=== PATIENT | female | born 1950 | race Caucasian/White ===

== ENCOUNTER 2017-02-23 16:14 | Observation (INO) | payer OTHER ==
[~2017-02-23] VITALS: Ht 160 cm; Wt 115.1 kg
[~2017-02-23 16:14] MED LIST: ASMANEX HF100 MCG/AC; ASMANEX IN; ATENOLOL100 MG PO; DELTASONE20 MG PO; IBUPROFEN800 MG PO; LEVOTHYROXINE75 MCG PO; LOSARTAN POTASS50 MG PO; MORPHINE SULFAT15 M2 PO; MORPHINE SULFAT30 MG PO; OPANA ER (CRUSH10 MG PO; PAXIL10 MG PO; PREDNISONE20 MG PO; VENTOLIN HFA IN; XANAX0.25 MG PO
--- NOTE | 2017-02-23 18:49 | ED CLINICAL REPORT ---
Clinical Report - Physicians/Mid Levels [facility] [address] [place] [address] 02/23/2017 16:14 Patient: VITALIY WELLER Time Seen: 1630. Arrived- By ambulance. Historian- patient. HISTORY OF PRESENT ILLNESS Chief Complaint: ABDOMINAL PAIN. At its maximum, severity described as severe. When seen in the E.D., severity described as severe. Modifying factors- worsened by movement. Relieved by rest. It is described as sharp and it is described as located in the right upper quadrant and radiating (right flank). This started ast 4 days and is still present and worsening. It was abrupt in onset and has been intermittent but is not gone now. The patient has had nausea and vomiting. No loss of appetite or diarrhea. No additional abdominal pain. No recent travel. Similar symptoms previously: Several times. Recent medical care: Not recently seen/assessed. REVIEW OF SYSTEMS No black stools, bloody stools, fever, chest pain or difficulty breathing. No skin rash. All systems otherwise negative, except as recorded above. PAST HISTORY See nurses notes. Medications: MS Contin Oral (Tablet Extended Release 15 mg) 1 tablet, daily. Atenolol Oral 100 mg, daily. Ibuprofen Oral 800 mg, 3x a day. Levothyroxine Sodium Oral 75 mcg, daily. Losartan Potassium Oral 50 mg, daily. Morphine Sulfate Oral 40 mg, daily (30mg plus 10mg). Opana Oral (Tablet 10 mg) 1 tablet, twice daily. Ventolin HFA Inhalation. Allergies: Ceclor. Dilaudid. Fentanyl. Penicillin. Quinolones. SOCIAL HISTORY Never smoker. No alcohol use or drug use. No recent travel. Is a local resident. FAMILY HISTORY No family history of gall bladder problems. ADDITIONAL NOTES The nursing notes have been reviewed. PHYSICAL EXAM Vital Signs: 02/23/2017 16:18 BP: 170/78. HR: 64. RR: 16. O2 saturation: 94%. Temp: 98.9 F. Pain level now: 10/10. Oxygen saturation normal. Appearance: Alert. Oriented X3. Patient in mild distress. (non-toxic. pleasant. cooperative.). Eyes: Pupils equal, round and reactive to light. Eyes normal inspection. No scleral icterus. ENT: Ears normal. Nose normal. Pharynx normal. Neck: Normal inspection. Neck supple. CVS: Normal heart rate and rhythm. Heart sounds normal. Pulses normal. Respiratory: No respiratory distress. Breath sounds normal. Chest nontender. No rales, rhonchi or wheezes. Abdomen: Soft. Mild tenderness in the right upper quadrant. Bowel sounds normal. No organomegaly. No mass. (negative Gutierrez's. No tenderness at McBurney's.). Skin: Skin warm and dry. Normal skin color. No rash. Normal skin turgor. Extremities: Extremities exhibit normal ROM. No lower extremity edema. LABS, X-RAYS, AND EKG Abdominal Sonogram: (PROCEDURE: US ABDOMEN ULTRASOUND-LIMITED INDICATION: RUQ ABDOMINAL PAIN TECHNIQUE: Gamboa scale and color Doppler sonographic images were obtained of the right upper quadrant. COMPARISON: None. FINDINGS: The liver is at the upper limits of normal in size, mildly heterogeneous in echotexture, and mildly hyperechoic. No mass or biliary dilatation. The gallbladder is distended and filled with heterogeneous material and multiple punctate echogenic reflectors. The wall is between3-4 mm, but there is focal thickening up to 10 mm, and hyperemic. There is trace pericholecystic fluid. The common duct is about 9 mm. There was a positive Gutierrez's sign per the technologist. The pancreas abdominal aorta, or distal common duct were not well seen. The visible portion of the inferior vena cava, and portal vein appear normal with appropriate direction of flow in the portal vein. The right kidney is normal measuring 10.3 cm. No free fluid in the right upper quadrant. IMPRESSION: 1. Findings suggestive of acalculous, acute cholecystitis. 2. Enlarged common duct without visualization of the distal portion. Choledocholithiasis cannot be excluded. 3. Pancreas, distal common duct, and aorta not well seen.). The study was independently viewed by me and interpreted by the radiologist. The study was discussed with the radiologist (via pacs). Laboratory Tests: UA-Culture if indicated: (ILANA: 02/23/2017 17:20) ( MsgRcvd 02/23/2017 17:41) Final results Test Result Flag Units (Reference) URINE COLOR DARK YELLOW URINE APPEARANCE SL CLOUDY URINE GLUCOSE NEGATIVE (NEGATIVE) URINE BILIRUBIN ICTOTEST NEGATIVE (NEGATIVE) URINE KETONE 1+ (NEGATIVE) URINE SPECIFIC GRAVITY >= 1.030 (1.010-1.030) URINE PH 6.0 (5.0-8.0) URINE PROTEIN 2+ (NEGATIVE) URINE UROBILINOGEN 1.0 EU/dL (0.2-1.0) URINE NITRITE NEGATIVE (NEGATIVE) URINE BLOOD NEGATIVE (NEGATIVE) URINE LEUK ESTERASE NEGATIVE (NEGATIVE) URINE RBC 0-1 rbc/hpf (0-1) URINE WBC 3-5 wbc/hpf (0-1) URINE EPITHELIAL CELLS 10-15 EPI/hpf (0-5) URINE BACTERIA MODERATE (2+ TO 3+) (NONE SEEN) URINE COMMENT CULTURE INDICATED 1+ MUCUSURINE CULTURES ARE SET-UP BASED ON THE FOLLOWING CRITERIA:POSITIVE NITRITEPOSITIVE LEUKOCYTE ESTERASEGREATER THAN 10 WHITE BLOOD CELLSMODERATE (2+) OR GREATER BACTERIA CBC w Diff: (ILANA: 02/23/2017 16:35) ( [facility] [place] 02/23/[place] 16:52) Final results Test Result Flag Units (Reference) WHITE BLOOD COUNT 11.8 H K/uL (4.5-11.5) RED BLOOD COUNT 5.31 H M/uL (4.00-5.20) HEMOGLOBIN 14.8 gm/dL (12.0-16.0) HEMATOCRIT 44.0 % (36.0-46.0) MEAN CELL VOLUME 83 fL (80-100) MEAN CORPUSCULAR HGB 28 pg (26-34) MEAN CORPUSCULAR HGB CONC 34 g/dL (31-37) RED CELL DISTRIBUTION WIDTH 13.0 % (11.6-14.8) PLATELET COUNT 292 K/uL (150-400) NEUTROPHIL % 72.9 % (50-75) LYMPH % 18.1 L % (25-40) MONO % 8.6 % (3-14) EOSINOPHIL % 0 % (0-4) BASOPHIL % 0.4 % (0-2) PT with INR: (ILANA: 02/23/2017 16:35) ( [facility] [place] 02/23/2017 16:58) Final results Test Result Flag Units (Reference) INR 1.0 (0.8-1.2) Low Intensity Therapy: INR 1.5-2.0 PT range 18.5-23.1Mod.Intensity Therapy: INR 2.0-3.0 PT range 23.1-31.5High Intensity Therapy: INR 2.5-3.5 PT range 27.4-35.5High Intensity Therapy 2: INR 3.0-4.0 PT range 31.5-39.3 CMP: (ILANA: 02/23/2017 16:35) ( MsgRcvd 02/23/2017 16:58) Final results Test Result Flag Units (Reference) GLUCOSE 124 H mg/dL (70-110) BUN 20 H mg/dL (7-18) CREATININE 1.0 mg/dL (0.6-1.3) Estimated GFR 59.33 mL/min Estimated GFR- >60 mL/min Note: Persistent reduction over 3 months in eGFR<60 mL/min/1.73 m2 defines CKD. Patients with eGFR values>=60 mL/min/1.73 m2 may also have CKD if evidence ofpersistent proteinuria. Additional information may be foundat [email or web address].org. SODIUM 144 mmol/L (136-145) POTASSIUM 3.7 mmol/L (3.5-5.1) CHLORIDE 106 mmol/L (98-107) CARBON DIOXIDE 25 mmol/L (21-32) CALCIUM 8.3 L mg/dL (8.5-10.1) TOTAL PROTEIN 7.6 g/dL (6.4-8.2) ALBUMIN 3.5 g/dL (3.3-5.0) BILIRUBIN, TOTAL 0.7 mg/dL (0.0-1.0) ALKALINE PHOSPHATASE 63 U/L (46-116) AST (SGOT) 34 U/L (15-37) ALT (SGPT) 33 U/L (12-78) LIPASE 86 U/L (73-393) AMYLASE 40 U/L (25-115) . PROGRESS AND PROCEDURES Course of Care: The patient is a pleasant 66-year-old female presenting for evaluation of right upper quadrantabdominal pain. At this time differential diagnosis includes hepatitis, biliary colic, acute cholecystitis, urinary tract infection as well as pancreatitis. Pain medication as been ordered. Patient is agreeable to the treatment and plan. Patient's workup is unremarkable for the findings above. Patient with emphysematous cholecystitis. Contacted general surgery who recommended patient be admitted to the hospital under their acute cholecystitis protocol admission. Because of the patient's allergies to medications, had some difficulty with selecting appropriate antibiotic therapy however was able to treat the patient at this time with metronidazole and aztreonam. Patient apparently with anaphylaxis to penicillin and would be concerned with treating the patient with cephalosporins as well after having a long discussion with the patient in regards to the sports physiologist activity of cephalosporins and penicillins. Was able to speak to the general surgeon who works at the patient's. Would like medicine to consult on the patient in regards to her other Medical condition management. Was able to speak to the hospitalist will also consult on the patient's case. No further recommendations made. Patient's pain has improved while here in the emergency department. Patient continues to be nontoxic and is not septic. Discussed with patient worker. Emergency department as well as diagnosis and plan of care. All questions have been answered. Prior to patient's departure from the emergency department she was noted to be resting in bed andin much significant improvement pain. Patient continues to be nontoxic. Vital signs otherwise unremarkable. Critical care performed (40 minutes). Time is exclusive of separately billable procedures. Time includes: direct patient care, patient reassessment, coordination of patient care, interpretation of data (laboratory data), review of patient's medical records, medical consultation and documentation of patient care. Disposition: Admitted to Acute Care. CLINICAL IMPRESSION acute emphysematous cholecystitis. Acute right upper quadrant abdominal pain. (Electronically signed by Mason Santos Dr. 02/24/2017 17:24)
--- NOTE | 2017-02-23 18:49 | ED ORDER SUMMARY ---
..... Patient: VITALIY WELLER OrderSheet [facility] VisitID: [id number] [address] [place] [address] 66y, F Registration Date/Time: 02/23/2017 ORDER SHEET Weight: 114.3 kg (stated) Allergies: Ceclor, Penicillin, Quinolones, Dilaudid, Fentanyl GENERAL ORDERS: CBC w Diff Urgent (16:02/23/2017 KKnebel R.N. per protocol) (Ack 16:30 TBergley) (16:40 KKnebel R.N.) CMP Urgent (:02/23/2017 KKnebel R.N. per protocol) (Ack 16:30 TBergley) (16:40 KKnebel R.N.) UA-Culture if indicated Urgent (16:02/23/2017 KKnebel R.N. per protocol) (Ack 16:30 TBergley) (17:22 Otto) PT with INR Urgent (16:02/23/2017 KKnebel R.N. per protocol) (Ack 16:30 TBergley) (16:40 KKnebel R.N.) Amylase Urgent (16:02/23/2017 KKnebel R.N. per protocol) (Ack 16:30 TBergley) (16:40 KKnebel R.N.) Lipase Urgent (16:02/23/2017 KKnebel R.N. per protocol) (Ack 16:30 TBergley) (16:40 KKnebel R.N.) Pulse oximeter (16:02/23/2017 KKnebel R.N. per protocol) (Ack 16:30 TBergley) (16:40 KKnebel R.N.) EKG - ER Stat (:02/23/2017 KKnebel R.N. per protocol) (Ack 16:30 TBergley) (16:38 TBergley) Vitals - Orthostatic (16:02/23/2017 KKnebel R.N. per protocol) (Ack 16:30 TBergley) (17:34 TBergley) Vitals (16:27 02/23/2017 KKnebel R.N. per protocol) (Ack 16:30 TBergley) (16:40 KKnebel R.N.) NPO (16:27 02/23/2017 KKnebel R.N. per protocol) (Ack 16:30 TBergley) (16:38 TBergley) US Abdomen Limited (No) Urgent (16:58 02/23/2017 Julianna Mittal) (Ack 17:01 TBergley) (19:05 KKnebel R.N.) MEDICATION ORDERS: Aztreonam IVPB 2 gm (NOW) (18:56 02/23/2017 Julianna Mittal) (19:43 MICHAELnebel R.N.) IV FLUIDS: IV NS : initial bolus 1000 mL (1000 mL/hr), then 1000 mL/hr for X1 (NOW) (16:27 02/23/2017 Nae R.N. per protocol) (16:41 Nae R.N.) IV Saline Lock (16:27 02/23/2017 Nae R.N. per protocol) (16:40 Nae R.N.) Morphine IV 4 mg (back log for 1700) (17:32 02/23/2017 Julianna Mittal) (17:35 MICHAELnemelvina R.N.) Zofran IV 4 mg (back log for 1700) (17:33 02/23/2017 Julianna Mittal) (17:36 MICHAELnemelvina R.N.) Morphine IV 8 mg (HIGH ALERT MEDICATION, NOW) (18:53 02/23/2017 Julianna Mittal) (19:29 MICHAELnemelvina R.N.) okay per history Zofran IV 4 mg (NOW) (18:53 02/23/2017 Julianna Mittal) (19:20 Nae R.N.) Metronidazole IV 500 mg/100mL (NOW) (18:56 02/23/2017 Julianna Mittal) (19:44 MICHAELnemelvina R.N.) ORDER SHEET NOTES: [Electronically signed by Esmer Joseph R.N. (23:18 02/23/2017)] [Electronically signed by Mason Santos Dr. (17:24 02/24/2017)] [Electronically locked/signed by Esmer Joseph R.N. (23:18 02/23/2017)]
--- NOTE | 2017-02-23 18:49 | ED NURSING NOTES ---
Clinical Report - Nurses [facility] [address] [place] [address] 02/23/2017 16:14 Patient: VITALIY WELLER TRIAGE 16:18 02/23/17. BP: 170/78. HR: 64. RR: 16. O2 saturation: 94%. Temp: 98.9 F. Pain level now: 07/29. --16:28 Esmer Joseph R.N. late entry - 16:18 02/23/17. --16:56 Esmer Joseph R.N. Triage time 16:15 16:18 Feb 23 2017 Feb 23 2017. Acuity: LEVEL 3. Chief Complaint: ABDOMINAL PAIN, NAUSEA and VOMITING. 16:25 02/23/17. Alert. No acute distress. --16:28 Esmer Joseph R.N. Weight: 114.3 kg stated. Height/Length: 64 inches Per Patient. BMI: 43.3. --16:23 Esmer Joseph R.N. Medications Atenolol Oral 100 mg, daily. Ibuprofen Oral 800 mg, 3x a day. Levothyroxine Sodium Oral 75 mcg, daily. Losartan Potassium Oral 50 mg, daily. Morphine Sulfate Oral 40 mg, daily (30mg plus 10mg). Opana Oral (Tablet 10 mg) 1 tablet, twice daily. Ventolin HFA Inhalation. --16:19 Esmer Joseph R.N. MS Contin Oral (Tablet Extended Release 15 mg) 1 tablet, daily. --16:20 Esmer Joseph R.N. Allergies Ceclor. Penicillin. Quinolones. --16:21 Esmer Joseph R.N. Dilaudid. --16:21 Esmer Joseph R.N. Fentanyl. --16:22 Esmer Joseph R.N. History Arrived by EMS, and from home. This is a new problem. Symptoms still present (about 4 days ago). PAST MEDICAL HX: Gallstones. The patient has had a hysterectomy. SOCIAL HX: Never smoker. No alcohol use or drug use. No recent travel. No infectious disease exposure. SELF HARM ASSESSMENT: A self harm assessment was performed. The patient answered "no" to the question "Do you have thoughts of harming or killing yourself?". ABUSE ASSESSMENT: Abuse assessment: The patient was asked "Do you feel safe in your home?". --16:28 Esmer Joseph R.N. 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 BP: 146 / palp. HR: 60. CHIRAG COMA SCORE: Chirag Coma Scale: 15- eyes open spontaneously (4); best verbal response- oriented x 4 (5); best motor response- obeys commands (6). --16:56 Esmer Joseph R.N. PROBLEMS: Thyroid Disease. Chronic Back Pain. Arthritis. Anxiety Reaction. Hyperlipidemia. Hypertension. Pneumonia. COPD - Chronic Obstructive Pulmonary Disease. Asthma. Hypokalemia. Abnormal EKG. Dehydration. Degenerative Joint Disease. Degenerative Joint Disease. Back Pain. --16:22 Esmer Joseph R.N. Coronary Artery Disease [RuleOut]. --16:22 Esmer Joseph R.N. ADDITIONAL SURGERIES: Appendectomy. Hernia Repair. Hysterectomy. --16:22 Esmer Joseph R.N. Interventions ID and allergy band on patient. To room. --16:28 Esmer Joseph R.N. PHYSICAL ASSESSMENT GENERAL / NEURO / PSYCH: Alert. Oriented X 4. Appears in pain. RESPIRATORY: Respirations not labored. CVS: Capillary refill less than 2 seconds. GI / : Abdomen soft. Abdominal tenderness in the upper abdomen. SKIN: Skin is warm and dry. --16:29 Esmer Joseph R.N. NURSING PROGRESS NOTES Patient identifiers checked. Side rails up x 1. Bed placed in lowest position. Brakes of bed on. --16:29 Esmer Joseph R.N. 16:35 02/23/2017 Site #1 started via IV in the left antecubital space with an 20g angiocath, with aseptic technique and good blood return; one attempt. Blood drawn: rainbow set. Labeled in the presence of the patient and sent to the lab. Saline lock flushed with 10 mL saline. --16:40 Esmer Joseph R.N. 16:41 02/23/2017 Started IV Fluids IV NS (Saline); at 1000 mL/hr over 1 hour(s) via site #1 via IV pump. Allergies verified and confirmed 5 rights. IV patency established. IV site checked: no pain, redness, or swelling. IV flushed thoroughly pre- and post-medication administration. --16:41 Esmer Joseph R.N. EKG time: (1646). EKG was ordered, performed by a tech and shown to the ED physician. --16:47 Cait Martínez 17:26 02/23/17. BP: 177/73 (regular adult cuff) taken on the right arm, while lying. HR: 64. --17:28 Cait Martínez 17:30 02/23/17. BP: 147/84 (regular adult cuff) taken on the right arm, while sitting. HR: 74. --17:30 Cait Martínez 17:31 02/23/17. BP: 144/85 (regular adult cuff) taken on the right arm, while standing. HR: 73 (regular). --17:31 Cait Martínez 17:20 02/23/2017 Morphine IVP 4 mg given over 2 minute(s) via site #1. Allergies verified, confirmed 5 rights and sedative warning given to the patient. IV patency established. IV site checked: no pain, redness, or swelling. IV flushed thoroughly pre- and post-medication administration. IVP given by RN. --17:35 Esmer Joseph R.N. 17:23 02/23/2017 Zofran (Ondansetron HCl) IVP 4 mg given over 2 minute(s) via site #1. Allergies verified and confirmed 5 rights. IV patency established. IV site checked: no pain, redness, or swelling. IV flushed thoroughly pre- and post-medication administration. IVP given by RN. --17:36 Esmer Joseph R.N. Reassessment after medication administered. She is calm and resting quietly. Overall patient status- she states feels better. --17:38 Esmer Joseph R.N. 17:36 02/23/17. BP: 157/80. HR: 71. RR: 16. O2 saturation: 90%. Pain level now: 04/28. --17:38 Esmer Joseph R.N. ( US at the bedside for exam.). --18:01 Justina Childers R.N. ( US completed pt resting.). --18:28 Esmer Joseph R.N. 19:20 02/23/2017 Zofran (Ondansetron HCl) IVP 4 mg given over 2 minute(s) via site #1. Allergies verified and confirmed 5 rights. IV patency established. IV site checked: no pain, redness, or swelling. IV flushed thoroughly pre- and post-medication administration. IVP given by RN. --19:20 Esmer Joseph R.N. 19:29 02/23/2017 Morphine IVP 8 mg given over 3 minute(s) via site #1. Allergies verified, confirmed 5 rights and sedative warning given to the patient. IV patency established. IV site checked: no pain, redness, or swelling. IV flushed thoroughly pre- and post-medication administration. IVP given by RN. --19:29 Esmer Joseph R.N. 19:43 02/23/2017 Started 2 gm of Aztreonam IVPB in bag #1 20 mL; at 120 mL/hr over 5 minute(s) via site #1; Allergies verified and confirmed 5 rights. IV patency established. IV site checked: no pain, redness, or swelling. IV flushed thoroughly pre- and post-medication administration. --19:43 Esmer Joseph R.N. 19:44 02/23/2017 Started 500 mg of Metronidazole IVPB in bag #1 100 mL; at 100 mL/hr over 1 hour(s) via site #1 via IV pump. Allergies verified and confirmed 5 rights. IV patency established. IV site checked: no pain, redness, or swelling. IV flushed thoroughly pre- and post-medication administration. --19:44 Knebel, Esmer, R.N. DISPOSITION / DISCHARGE Patient's personal items include: shirt, pants, undergarments, shoes, jewelry, purse and cell phone, silver colored watch, silver colored bracelet, 4 hoop earrings and 1 pair clear stone/silver earrings, silver cross necklace.; items were placed in belongings bag, given to the patient and transported with the patient. Collection of belongings was witnessed by nurse. --19:55 Esmer Joseph R.N. Transported via stretcher by transport team with IV. --20:16 Lyndon Ferguson R.N. Locked/Released at 02/23/2017 23:18 by Esmer Joseph R.N.
--- NOTE | 2017-02-23 18:49 | ED ORDER SUMMARY ---
..... Patient: VITALIY WELLER OrderSheet [facility] VisitID: [id number] [address] [place] [address] 66y, F Registration Date/Time: 02/23/2017 ORDER SHEET Weight: 114.3 kg (stated) Allergies: Ceclor, Penicillin, Quinolones, Dilaudid, Fentanyl GENERAL ORDERS: CBC w Diff Urgent (16:02/23/2017 KKnebel R.N. per protocol) (Ack 16:30 TBergley) (16:40 KKnebel R.N.) CMP Urgent (:02/23/2017 KKnebel R.N. per protocol) (Ack 16:30 TBergley) (16:40 KKnebel R.N.) UA-Culture if indicated Urgent (16:02/23/2017 KKnebel R.N. per protocol) (Ack 16:30 TBergley) (17:22 Otto) PT with INR Urgent (16:02/23/2017 KKnebel R.N. per protocol) (Ack 16:30 TBergley) (16:40 KKnebel R.N.) Amylase Urgent (16:02/23/2017 KKnebel R.N. per protocol) (Ack 16:30 TBergley) (16:40 KKnebel R.N.) Lipase Urgent (16:02/23/2017 KKnebel R.N. per protocol) (Ack 16:30 TBergley) (16:40 KKnebel R.N.) Pulse oximeter (16:02/23/2017 KKnebel R.N. per protocol) (Ack 16:30 TBergley) (16:40 KKnebel R.N.) EKG - ER Stat (:02/23/2017 KKnebel R.N. per protocol) (Ack 16:30 TBergley) (16:38 TBergley) Vitals - Orthostatic (16:02/23/2017 KKnebel R.N. per protocol) (Ack 16:30 TBergley) (17:34 TBergley) Vitals (16:27 02/23/2017 KKnebel R.N. per protocol) (Ack 16:30 TBergley) (16:40 KKnebel R.N.) NPO (16:27 02/23/2017 KKnebel R.N. per protocol) (Ack 16:30 TBergley) (16:38 TBergley) US Abdomen Limited (No) Urgent (16:58 02/23/2017 Julianna Mittal) (Ack 17:01 TBergley) (19:05 KKnebel R.N.) MEDICATION ORDERS: Aztreonam IVPB 2 gm (NOW) (18:56 02/23/2017 Julianna Mittal) (19:43 MICHAELnebel R.N.) IV FLUIDS: IV NS : initial bolus 1000 mL (1000 mL/hr), then 1000 mL/hr for X1 (NOW) (16:27 02/23/2017 Nae R.N. per protocol) (16:41 Nae R.N.) IV Saline Lock (16:27 02/23/2017 Nae R.N. per protocol) (16:40 Nae R.N.) Morphine IV 4 mg (back log for 1700) (17:32 02/23/2017 Julianna Mittal) (17:35 MICHAELnemelvina R.N.) Zofran IV 4 mg (back log for 1700) (17:33 02/23/2017 Julianna Mittal) (17:36 MICHAELnemelvina R.N.) Morphine IV 8 mg (HIGH ALERT MEDICATION, NOW) (18:53 02/23/2017 Julianna Mittal) (19:29 MICHAELnemelvina R.N.) okay per history Zofran IV 4 mg (NOW) (18:53 02/23/2017 Julianna Mittal) (19:20 Nae R.N.) Metronidazole IV 500 mg/100mL (NOW) (18:56 02/23/2017 Julianna Mittal) (19:44 MICHAELnemelvina R.N.) ORDER SHEET NOTES: [Electronically signed by Esmer Joseph R.N. (23:18 02/23/2017)] [Electronically signed by Mason Santos Dr. (17:24 02/24/2017)] [Electronically locked/signed by Esmer Joseph R.N. (23:18 02/23/2017)]
--- NOTE | 2017-02-23 19:06 | DIAGNOSTIC IMAGING REPORT ---
PROCEDURE: US ABDOMEN ULTRASOUND-LIMITED INDICATION: RUQ ABDOMINAL PAIN TECHNIQUE: Gamboa scale and color Doppler sonographic images were obtained of the right upper quadrant. COMPARISON: None. FINDINGS: The liver is at the upper limits of normal in size, mildly heterogeneous in echotexture, and mildly hyperechoic. No mass or biliary dilatation. The gallbladder is distended and filled with heterogeneous material and multiple punctate echogenic reflectors. The wall is between3-4 mm, but there is focal thickening up to 10 mm, and hyperemic. There is trace pericholecystic fluid. The common duct is about 9 mm. There was a positive Gutierrez's sign per the technologist. The pancreas abdominal aorta, or distal common duct were not well seen. The visible portion of the inferior vena cava, and portal vein appear normal with appropriate direction of flow in the portal vein. The right kidney is normal measuring 10.3 cm. No free fluid in the right upper quadrant. IMPRESSION: 1. Findings suggestive of acalculous, acute cholecystitis. 2. Enlarged common duct without visualization of the distal portion. Choledocholithiasis cannot be excluded. 3. Pancreas, distal common duct, and aorta not well seen. 4. Preliminary report by the technologist to the emergency room provider.
[2017-02-23 20:40] VITALS: BP 142/54
[2017-02-23] MEDS ORDERED: MORPHINE SULFAT15 M2 PO (21:19)
[2017-02-23 22:36] VITALS: BP 169/82
--- NOTE | 2017-02-23 22:46 | NUR ---
PT ARRIVED TO ROOM 204B FROM ED VIA STRETCHER AND FACILITY TECH TRANSPORT AROUND 2029. PT AMBULATED FROM STRETCHER TO BATHROOM TO VOID. MADE COMFORTABLE IN BED. C/O NAUSEA AND ABDOMINAL CRAMPING PAIN. CALM AND COOPERATIVE WITH CARE. JOSE.
--- NOTE | 2017-02-23 23:01 | NUR ---
VSS. A&OX4. CALLS APPROPRIATELY. PLAN FOR [facility]E AT 0630 IN THE AM. WCTM.
--- NOTE | 2017-02-23 23:20 | CONSULTATION REPORT ---
DATE OF CONSULTATION: 02/23/2017 REFERRING PHYSICIAN: Ga Horowitz III, MD CONSULTING PHYSICIAN: Osvaldo Miranda MD CHIEF COMPLAINT: 1. Reason for consultation: Medical management of COPD, hypertension, and pain HISTORY OF PRESENT ILLNESS: This is a 66-year-old white female who developed pain in the upper abdomen. It started 4 days ago with severity of 10/10, radiating to the back, associated with nausea and vomiting. No diarrhea. No constipation. The patient did not have any fever or chills. The patient was not able to eat or drink. Finally came to the emergency department and was found to have cholecystitis. MEDICAL/SURGICAL HISTORY: Past medical history is remarkable for COPD, hypertension, hypothyroidism, degenerative joint disease of multiple joints and some kind of arrhythmia. Surgical history is remarkable for hysterectomy, hernia repair, appendectomy, and tonsillectomy. Last hospitalization was in 08/2016 for COPD. MEDICATIONS: 1. Alprazolam 0.375 t.i.d. for anxiety. 2. Morphine sulfate ------- 3. Mometasone furoate or Asmanex 220 mcg 1 twice a day. 4. Losartan 50 mg daily. 5. Albuterol 2 puffs 4 times a day. 6. Ibuprofen 800 mg t.i.d. 7. Atenolol 100 mg daily. 8. Levoxyl 75 mcg once a day. 9. Morphine sulfate ------- 10. Oxymorphone 5 mg b.i.d. ALLERGIES: 1. CECLOR. 2. FENTANYL. 3. HYDROMORPHONE. SOCIAL HISTORY: The patient is , has 3 kids. No history of smoking, alcohol, or drug abuse. FAMILY HISTORY: Noncontributory. REVIEW OF SYSTEMS: The patient has been gaining weight recently. No difficulty with vision or hearing. No runny nose or congestion, no cough, no sore throat. No shortness of breath. No palpitations or chest pain. No frequency, dysuria, or incontinence. Complains of generalized pain in multiple joints and some headache since cholecystitis, but no tingling, numbness, dizziness. No syncope. No localized weakness. PHYSICAL EXAMINATION: VITAL SIGNS: Temperature is 99.3, pulse is 66, respirations 18, blood pressure 142/54, and oxygen saturation 92% on room air. GENERAL APPEARANCE: Well-developed, good body build, moderately obese. No acute distress. HEENT: Ears: Normal tympanic membranes. Nose: Normal mucosa. Neck: Supple. No JVD. No carotid bruit. No palpable mass. SKIN: Warm and dry with good turgor. LUNGS: Clear to auscultation. No rhonchi or wheezing or crackles. HEART: Regular S1, S2. No murmur. No S3 was heard. ABDOMEN: Soft, mildly tender. Bowel sounds are hypoactive. EXTREMITIES: No edema. Good peripheral pulses. No signs of DVT or cyanosis. MUSCULOSKELETAL SYSTEM: Grossly within normal limits. NEUROLOGIC SYSTEM: Alert and oriented x3. Cranial nerves are grossly intact. No motor deficits. Pupils are equal, round, and reactive to light. Extraocular movements are intact. No nystagmus. No cerebellar signs. LAB/IMAGING: White blood count is 11.8, hemoglobin 14.8, hematocrit is 44, and platelet count is 292. INR is 1. Sodium is 144, potassium 3.7, chloride is 106, CO2 is 25 , BUN is 20, creatinine is 1, glucose is 124, calcium is 8.3. Liver enzymes unremarkable. UA is unremarkable except protein 2+. CT of the abdomen shows acute cholecystitis. IMPRESSION: 1. Hypertension. 2. Chronic obstructive pulmonary disease. 3. Hypothyroidism. 4. Acute cholecystitis. PLAN: We will obtain a TSH, CBC, and Chem-7 in the morning. We will start her outpatient medications including inhalers, losartan, and atenolol. The patient is already on cefotetan for acute cholecystitis, Zofran, and morphine sulfate, which should control the pain adequately. The patient is also on Flagyl. The patient will follow up in the hospital with the hospitalist.
[2017-02-24] VITALS (13 sets, daily range): BP systolic 123–174; BP diastolic 49–85
--- NOTE | 2017-02-24 03:50 | NUR ---
PT. C/O 05/29 UPPER ABDOMINAL CRAMPING PAIN, REQUESTS PAIN MEDICATION FREQUENTLY. PER PT., THE REGLAN AND DEMEROL HELPED THE MOST WITH HER CRAMPING. ASSESSMENT COMPLETED. SURGICAL PACKET IN CHART, WILL GET PT. READY FOR SURGERY, WHICH IS SCHEDULED FOR 629. [facility].
--- NOTE | 2017-02-24 05:49 | History & Physical Report ---
Information Source Information Source: Self History Chief Complaint Abdominal pain History of Present Illness 66-year-old female asthmatic/COPD chronic back pain and presented to the emergency room with a 5 day duration of crampy abdominal pain and vomiting. According to patient the pain began in the left lateral flank slowly migrated to the mid abdomen. At present she complains of epigastric abdominal discomfort. Patient states it is coming in waves. Patient has had similar problems for the last 5 years but never brought it up to her primary care provider. MEDICATIONS: Oxymorphone 5 mg twice a day Morphine 10 mg at bedtime and 30 mg twice a day Synthroid 75 g daily atenolol 100 mg daily alprazolam 0.25 mg 3 times a day Albuterol inhaler when necessary Asmanex inhaler twice a day PAST MEDICAL/SURGICAL HISTORY: Hypothyroidism COPD Asthma Cardiac irregularities Heart murmur Severe degenerative joint disease of the spine Tonsillectomy and adenoidectomy Appendectomy Umbilical hernia repair Abdominal hysterectomy bilateral oophorectomy Patient History 1. Acute emphysematous cholecystitis Social History . 2 sons and 1 daughter alive and well. Smoking history negative. Alcohol history negative Patient drinks decaf coffee. Patient does not use recreational drugs. Retired. FAMILY HISTORY: Mother age 87 in good health. Father age 61 massive MA. One brother with severe back problems as well. No sisters. Family History MOTHER, . FATHER, . Relation not specified for: Cardiac arrest Hypertension Medications and Allergies Medications Current Medications Sig/Mauricio Start time Last Medication Dose Route Stop Time Status Admin Atenolol 100 MG DAILY 02/24 900 AC PO Candesartan Cilexetil 8 MG DAILY 02/24 900 AC PO Albuterol See Dose RTQID 02/25 800 CAN Insts (1) IN Albuterol Sulfate 2.5 MG RTQID 02/25 800 AC IN Levothyroxine Sodium 75 MCG 0600 02/24 0600 AC PO Metoclopramide HCl 10 MG Q6HR 02/24 0000 AC / IV 0508 Alprazolam 0.5 MG Q8H PRN 02/23 2230 AC PO Cefotetan Disodium/ 50 ML Q12HR 02/23 2100 AC 05/07 Dextrose IV 2123 Famotidine/Sodium 50 ML Q12HR 02/23 2100 AC 05/07 Chloride IV 2050 Cefotetan Disodium/ 50 ML .REAL TIME OPERATOR TO OR 02/23 2015 AC Dextrose IV Lactated Ringer's 1,000 ML ASDIRECTED 02/23 2015 AC 02/23 IV 2050 Meperidine HCl 12.5 MG Q1H PRN 02/23 2015 AC IV Meperidine HCl 25 MG Q1H PRN 02/23 2015 AC 02/24 IV 0423 Morphine Sulfate 2 MG Q4H PRN 02/23 2015 AC IV Morphine Sulfate 4 MG Q4H PRN 02/23 2015 AC IV Ondansetron HCl 4 MG Q6H PRN 02/23 2015 AC 02/24 IV 0423 Morphine Sulfate See Dose Q4H PRN 02/23 1900 CAN Insts (2) IV Ondansetron HCl 4 MG Q8H PRN 02/23 1900 CAN IV Dose Instructions: (1)Albuterol: 1 - 2 PUFFS (2)Morphine Sulfate: 2 - 4 MG Allergies Coded Allergies: Cefaclor (From Ceclor) (Severe, 12/08/14) Fentanyl (Severe, PATCH 05/20/16) Flu Virus Vaccine (From FLUZONE) (Severe, 05/20/16) Hydromorphone (Severe, 05/20/16) Penicillins (Severe, 12/08/14) Quinolones (Severe, 12/08/14) Thimerosal (From FLUZONE) (Severe, 05/20/16) Review of Systems Other AB 0. Menarche age 14. First full-term age 26. Last menstrual period in her 40s. Last Pap smear 5 years ago. Last mammogram 8 years ago. Patient has never had a colonoscopy. Patient denies any history of hepatitis, jaundice, rheumatic fever, bleeding tendencies, or blood transfusions. Patient states that she does have a heart murmur but cannot remember if she has to take antibiotics when she goes to the dentist. Patient admits to shortness of breath especially with exertion, complains of chronic back pain, complains of lower abdominal swelling. Patient states that she is unsteady on her feet and requires a walker secondary to her back problems. Remaining 12 point review of system negative Physical Exam Vital Signs / I&Os Vital Signs Date Time Temp Pulse Resp B/P Pulse O2 O2 Flow FiO2 Ox Delivery Rate 02/24 0306 4.0 02/24 0239 98.1 55 18 155/85 98 2.0 02/24 2236 98.2 74 18 169/82 93 02/24 2040 99.3 66 18 142/54 92 I&O 02/23 0800 02/23 1600 02/24 0000 Intake Total 0 Output Total 250 Balance -250 General Appearance Alert, Oriented X3, Cooperative, Mild distress, morbidly obese HEENT Atraumatic, PERRLA, EOMI, Moist mucous membranes, Edentulous Lungs Clear to auscultation Neck Supple, No JVD, No masses, No thyromegaly, No lymphadenopathy Cardiovascular Regular rate and rhythm, no murmur that I can appreciate Abdomen obese abdomen.hanging pannus. Midline incision from umbilicus to pubic region. Patient very tender to palpation right upper quadrant epigastrium Extremities patient has SCDs on lower extremities. Skin no peripheral cyanosis Neurological No lateralizing signs Psych/Mental Status Mood normal LAB Results Laboratory Tests 02/23 02/23 1635 1720 Chemistry Plasma Sodium (136 - 145 mmol/L) 144 Plasma Potassium (3.5 - 5.1 mmol/L) 3.7 Plasma Chloride (98 - 107 mmol/L) 106 CO2 (Enzymatic) (21 - 32 mmol/L) 25 BUN (7 - 18 mg/dL) 20 Creatinine (0.6 - 1.3 mg/dL) 1.0 Est GFR ( Amer) (mL/min) >60 Est GFR (Non-Af Amer) (mL/min) 59.33 Glucose (70 - 110 mg/dL) 124 Plasma Calcium (8.5 - 10.1 mg/dL) 8.3 Total Bilirubin (0.0 - 1.0 mg/dL) 0.7 AST (15 - 37 U/L) 34 ALT (12 - 78 U/L) 33 Alkaline Phosphatase (46 - 116 U/L) 63 Total Protein (6.4 - 8.2 g/dL) 7.6 Albumin (3.3 - 5.0 g/dL) 3.5 Amylase (25 - 115 U/L) 40 Lipase (73 - 393 U/L) 86 Coagulation INR (0.8 - 1.2) 1.0 Hematology WBC (4.5 - 11.5 K/uL) 11.8 RBC (4.00 - 5.20 M/uL) 5.31 Hgb (12.0 - 16.0 gm/dL) 14.8 Hct (36.0 - 46.0 %) 44.0 MCV (80 - 100 fL) 83 MCH (26 - 34 pg) 28 RDW (11.6 - 14.8 %) 13.0 Neut % (Auto) (50 - 75 %) 72.9 Lymph % (Auto) (25 - 40 %) 18.1 [place] % (Auto) (3 - 14 %) 8.6 Eos % (Auto) (0 - 4 %) 0 Baso % (Auto) (0 - 2 %) 0.4 Plt Count, EDTA (150 - 400 K/uL) 292 PUBS MCHC (31 - 37 g/dL) 34 Urines Urine Color DARK YELLOW Urine Appearance SL CLOUDY Urine pH (5.0 - 8.0) 6.0 Ur Specific [place] (1.010 - 1.030) >= 1.030 Urine Protein (NEGATIVE) 2+ Urine Ketones (NEGATIVE) 1+ Urine Blood (NEGATIVE) NEGATIVE Urine Nitrite (NEGATIVE) NEGATIVE Ur Bilirubin Confirm (NEGATIVE) NEGATIVE Urine Urobilinogen (0.2 - 1.0 EU/dL) 1.0 Ur Leukocyte Esterase (NEGATIVE) NEGATIVE Urine RBC (0 - 1 rbc/hpf) 0-1 Urine WBC (0 - 1 wbc/hpf) 3-5 Ur Epithelial Cells (0 - 5 EPI/hpf) 10-15 Urine Bacteria (NONE SEEN) MODERATE (2+ TO 3+) Urine Glucose (NEGATIVE) NEGATIVE Urine Comment CULTURE INDICATED Microbiology Date/Time Procedure - Status Source Growth 02/23 1720 Urine Culture - RECD URINE CC Imaging Lengthy discussion with Dr. Li, radiology, concerning the patient's ultrasound. The gallbladder is thickened, distended and hyperemic. There is pericholecystic fluid. Positive Jared sign. This was consistent with acute cholecystitis. No gallstones identified in the gallbladder. She is not particularly impressed that this is an emphysematous gallbladder. Assessment and Plan Problem List 1. Acute emphysematous cholecystitis Plan 66-year-old female with multiple medical problems these are being addressed by the hospitalist. Appears to have acalculous cholecystitis. The pathophysiology of gallbladder disease was explained to the patient. My recommendation is to proceed with laparoscopic cholecystectomy. Risks to include but not exclusive of infection, conversion to open procedure, hemorrhage, damage to local structures including main duct, bile leak retained stone. Patient understands and agrees to proceed. We will schedule her for urgent surgery this morning. All questions answered to her satisfaction.
--- NOTE | 2017-02-24 06:47 | Progress Note ---
Subjective General Date of Note: 02/24/17 Date of admission 02/23/17 Initial consultation 02/23/17 Reason for consultation: Medical management of COPD, hypertension, and pain This is a 66-year-old white female who developed pain in the upper abdomen with radiation to the back. The onset after 4 days with severity of 10/10 prompted visit the [facility] ED. Other symptoms of nausea and vomiting. No diarrhea. No constipation. Imaging confirmed dx of cholecystitis. Admission under General Surgery, Dr. Horowitz. Consultation called for medical management. Subjective She is primarily complaining of pain. Patient states that she is normally on long-acting morphine along with a short acting morphine for breakthrough. Patient's not well pain control and asking for better judgment on her pain. Patient was successful in having the cholecystectomy. Patient reports that she' s not able to go home tonight due to her level of pain. Patient reports difficulty in caring for herself at this time. Patient requests. Improve on pain control Physical Exam Vital Signs / I&Os Vital Signs Date Time Temp Pulse Resp B/P Pulse O2 O2 Flow FiO2 Ox Delivery Rate 02/24 0605 98.4 58 18 125/58 93 Nasal 4.0 Cannula 02/24 0604 98.4 58 18 93 Nasal 4.0 Cannula 02/24 0306 4.0 02/24 0239 98.1 55 18 155/85 98 2.0 02/23 2236 98.2 74 18 169/82 93 05/ 2040 99.3 66 18 142/54 92 I&O 02/23 0800 05/ 1600 05/08 0000 Intake Total 0 Output Total 250 Balance -250 General Appearance Oriented X3, Mild distress HEENT EOMI Lungs Normal air movement Cardiovascular Normal S1 and S2 Abdomen tenderness over the incision site. Protuberant, nondistended. Imaging Gallbladder is thickened, distended and hyperemic. There is pericholecystic fluid. Consistent with acute cholecystitis. No gallstones identified in the gallbladder. Signs of an emphysematous gallbladder. Assessment and Plan Problem List 1. COPD (chronic obstructive pulmonary disease) Status Chronic Onset Date Unknown Plan Patient with history of COPD. Patient currently stable. Patient asking for better control of her airway. *With albuterol 1-2 puffs every 6 hours as needed for shortness of breath wheeze or cough. 2. Hypertension Plan Blood pressure will maintain on current therapy. Continue to monitor; may titrate up on blood pressure control if needed. 3. Hypothyroid Plan Continue with the thyroid replacement. 4. Acute emphysematous cholecystitis Plan Successful cholecystectomy. Followed by Dr. Horowitz 5. Opiate use Plan Patient having higher demands of her narcotic agents for pain control. We'll go ahead and start on 50 mg extended release morphine. Patient will have 7.5 mg by mouth short acting morphine for breakthrough. Current status: Stable Anticipated discharge date: Anticipated discharge in days 1-2 days Anticipated discharge placement: Home Patient care time: Time spent in chart review, patient interview, physical exam, CPOE, and care documentation: minutes Visit to patient today: 2 Complexity of care: Mild Initial patient evaluation: Hoffman, consultation by general surgery E&M Codes Inpatient Consult: Comp-High/[id number]
--- NOTE | 2017-02-24 07:10 | NUR ---
PT. LEFT FOR SURGERY VIA [facility] AT 0710.
--- NOTE | 2017-02-24 09:21 | Operative Report ---
Operative Report Date of Surgery: 05/27/17 Preoperate Diagnosis: acalculus cholecystitis Postoperative Diagnosis: acute cholecystitis/cholelithiasis Surgeon: Ga Horowitz MD Fundraising Specialist Surgeon: Papito Castillo MD Procedure Performed: Laparoscopic cholecystectomy with fluoroscopic intraoperative cholangiogram and interpretation Anesthesia: Gen. endotracheal Indications: 66-year-old morbidly obese female with COPD and asthma presented to the emergency room with epigastric abdominal pain. Ultrasound consistent with acalculous cholecystitis. The patient had approximately five-year history of intermittent bouts similar this most recent. FINDINGS: Adhesions to the midline abdomen from just above the umbilicus to the pubic region. Distended gallbladder. Fatty liver. Large amount of omentum within the abdominal cavity. Sludge within the gallbladder. Stone impacting the cystic duct. Normal intraoperative cholangiogram. Free flow of contrast material into the duodenum. Visualization hepatic radicals, hepatic duct and common bile duct with no evidence of retained stone or obstruction Surgical Technique: Patient brought to the operating room and placed in the dorsal supine position. Patient was administered general endotracheal anesthesia by the anesthesiology department. After proper anesthesia taken effect patient's abdomen was prepped using Betadine and draped in a sterile fashion. Because of the previous abdominal surgery, an attempt was made to place a very needle in the supraumbilical region and the abdominal cavity which was unsuccessful.. Therefore, we elected to proceed and making a small incision in the right upper quadrant just below the costal margin and entering the abdominal cavity under blunt dissection. A 10 mm trocar was placed within the abdominal cavity at this site. A pneumoperitoneum obtained using CO2 insufflation to proximal and 14 -15 mmHg pressure Under direct visualization a separate 10 mm trocar was placed in subxiphoid region. One 5 mm trochars were placed in the anterior lateral abdominal wall approximately 5 fingerbreadths below the costal margin. A separate 10 mm trocar was placed just to the right of the umbilicus to avoid the omental adhesions. A separate 10 mm trocar was placed under direct visualization into the abdominal cavity, being placed in the right lower quadrant mid axillary kashif. Each trocar entered the abdominal cavity under direct visualization. Trochars removed leaving the sleeve behind through which laparoscopic instrumentation was introduced into the abdominal cavity. The aforementioned findings noted. An Endo fan was introduced into the abdominal cavity through the right lower quadrant trocar site. This in the event was then placed over the omental fat and the duodenum to expose the neck of the gallbladder for dissection. The gallbladder grasped retracted cephalad. Using a combination of blunt dissection and electrocautery were able to circumferentially isolate the cystic duct once exposed.. A clip was placed at the junction of the neck of the cystic duct and the gallbladder. Small incision made in the anterior surface of the cystic duct and a stone was milked from the cystic duct thus securing it. Percutaneous cholangiocatheter was threaded through the anterior abdominal wall into the cystic duct and clipped into position. The fluoroscopic intraoperative cholangiogram was performed.. The aforementioned findings noted, the cholangiogram catheter was retrieved from the cystic duct and the abdominal cavity. The distal cystic duct was clipped in continuity divided. The cystic artery identified clipped continuity divided. The gallbladder was taken down from its bed in a retrograde fashion using electrocautery dissection. When the gallbladder was completely free from its bed, the gallbladder was placed in a sterile specimen container bag and retrieved from the abdominal cavity. The gallbladder specimen was sent to pathology. The gallbladder bed was inspected for hemostasis. The assuring ourselves of proper hemostasis, the right upper quadrant was irrigated copiously with normal saline antibiotic solution and irrigant suctioned out. Approximately 30 cc 0.5% Marcaine with epinephrine were sprayed over the right lobe of of the liver for postop analgesia. The pneumoperitoneum released. All trochars removed and the abdominal cavity. All trocar sites were approximated using 4-0 subcuticular Polysorb interrupted suture. Steri-Strips placed over the wound. Sterile occlusive dressing placed over each site. Patient tolerated procedure well. Patient was extubated and transferred recovery room in stable condition. There were no intraoperative anesthetic outpatient. CONDITION: Stable to postoperative anesthesia recovery room COMPLICATIONS: None ESTIMATED BLOOD LOSS: Minimal FLUIDS: 400 cc lactate Ringers SPECIMEN: Gallbladder and contents
--- NOTE | 2017-02-24 09:29 | NUR ---
REC'D FROM OR; SPONT RESP. SUPINE, ASKING TO BE REPOSITIONED; NO C/O PAIN. HOB ELEVATED 60 DEGREES.
--- NOTE | 2017-02-24 09:43 | NUR ---
SLEEPING QUIETLY; OCCASIONALY WAKES UP AND ASKS FOR PAIN MEDS- FALLS ASLEEP QUICKLY.
--- NOTE | 2017-02-24 09:43 | DIAGNOSTIC IMAGING REPORT ---
PROCEDURE: XR INTRAOPERATIVE LAP KAILEE INDICATION: IOC TECHNIQUE: Intraoperative fluoroscopy provided for Dr. Horowitz performing an intraoperative cholangiogram following cholecystectomy. Total fluoroscopy time 18 seconds Cumulative dose 10.9 mGy. COMPARISON: Abdominal ultrasound 02/23/2017 FINDINGS: Single intraoperative fluoroscopic spot image of the right upper quadrant of the abdomen demonstrates cannulation of the cystic duct stump and opacification of the intrahepatic and extrahepatic biliary tree. There are no filling defects. There is normal passage of contrast into the duodenum. IMPRESSION: 1. Negative intraoperative cholangiogram.
--- NOTE | 2017-02-24 10:32 | NUR ---
RECIEVED PT FROM PACU. PT AWAKE, ALERT AND COOPERATIVE. PT ABLE TO AMBULATE FROM STRETCHER TO BATHROOM TO THE BED. 5 TROCAR SITES ALL INTACT WITH SMALL AMOUNT OF DRAINAGE.
--- NOTE | 2017-02-24 11:17 | NUR ---
REVIEWED 'S ORDERS TO AMBULATE Q1H AND TO USE THE I.S. Q1H WELL. PT STATED "I JUST HAD SURGERY I CAN'T BREATHE ON THAT THING" I ENCOURAGED HER TO TRY AND THAT IT WOULD GET EASILER SHE WORKED ON IT. PT MEDICATED WITH MORPHINE 2MG FOR PAIN OF 09/28. WILL CONTINUE TO MONITOR AND ENCOURAGE.
--- NOTE | 2017-02-24 11:23 | NUR ---
PT UP TO BSC TO VOID, WHEN SHE STOOD UP ALL TROCAR SITES BEGAN TO LEAK AND DRIP ONTO THE FLOOR. DRAIAGE LOOKS LIKE DILUTED BLOODY RED, POSSIBLE IRRIGATION/BLOOD. PT PUT BACK TO BED AND ALL SITES WERE REDRESSED WITH GUAZE AND TEGADERM.
--- NOTE | 2017-02-24 15:44 | NUR ---
RECHECKED DRESSINGS AND THE UMB SITE WAS AGAIN SATURATED AND REDRESSED. OTHER SITES WERE DRY.
--- NOTE | 2017-02-24 15:46 | NUR ---
PT HAS BEEN USING THE I.S. INDEP AND IS AUTUMN TO GET TO 750. SHE HAS ALSO BEEN UP AMB IN THE HALLS.
--- NOTE | 2017-02-24 16:50 | NUR ---
NUTRITION FOLLOW UP NOTE: Pt s/p lap larry today, up ambulating per observation. Pt started on clear liquids today per orders. PMH includes COPD, HTN, hypothyroid, DJD. Rec continue to advance diet as tolerated to cardiac or low sodium 2/2 hx/o HTN. RD to follow up with complete assessment per protocol.
--- NOTE | 2017-02-24 17:24 | ED MAR SUMMARY ---
..... Medication Administration Record [facility] [address] [address] Patient: VITALIY WELLER Visit ID: [id number] 66y, F Weight: 114.3 kg Height/Length: 64 in BMI: 43.3 ALLERGIES: Fentanyl, Dilaudid, Ceclor, Penicillin, Quinolones Start 16:41 02/23/2017 Esmer Joseph R.N. Medication Administered: IV NS (SALINE), Dose: IV Fluids over 1 hour(s), Rate: 1000 mL/hr, Site: #1 left AC. Medication Ordered: IV NS : initial bolus 1000 mL (1000 mL/hr), then 1000 mL/hr for X1 (NOW). Given 17:20 02/23/2017 Esmer Joseph R.N. Medication Administered: MORPHINE [IVP], Dose: 4 mg IVP over 2 minute(s), Site: #1 left AC. Medication Ordered: Morphine IV 4 mg (back log for 1700). Given 17:23 02/23/2017 Esmer Joseph R.N. Medication Administered: ZOFRAN [IVP] (ONDANSETRON HCL), Dose: 4 mg IVP over 2 minute(s), Site: #1 left AC. Medication Ordered: Zofran IV 4 mg (back log for 1700). Given 19:20 02/23/2017 Esmer Joseph R.N. Medication Administered: ZOFRAN [IVP] (ONDANSETRON HCL), Dose: 4 mg IVP over 2 minute(s), Site: #1 left AC. Medication Ordered: Zofran IV 4 mg (NOW). Given 19:29 02/23/2017 Esmer Joseph R.N. Medication Administered: MORPHINE [IVP], Dose: 8 mg IVP over 3 minute(s), Site: #1 left AC. Medication Ordered: Morphine IV 8 mg (HIGH ALERT MEDICATION, NOW). Start 19:43 02/23/2017 Esmer Joseph R.N. Medication Administered: AZTREONAM [IVPB], Dose: 2 gm IVPB over 5 minute(s), Rate: 120 mL/hr, Dispensed: 20 mL bag, Site: #1 left AC. Medication Ordered: Aztreonam IVPB 2 gm (NOW). Start 19:44 02/23/2017 Esmer Joseph R.N. Medication Administered: METRONIDAZOLE [IVPB], Dose: 500 mg IVPB over 1 hour(s), Rate: 100 mL/hr, Dispensed: 100 mL bag, Site: #1 left AC. Medication Ordered: Metronidazole IV 500 mg/100mL (NOW).
--- NOTE | 2017-02-24 17:24 | ED DISCHARGE INSTRUCTIONS ---
Patient: VITALIY WELLER General Instructions [facility] VisitID: [id number] [address] [place] [address] 66y, F Registration Date/Time: 02/23/2017 acute emphysematous cholecystitis. Acute right upper quadrant abdominal pain. (Electronically signed by Mason Santos Dr. 02/24/2017 17:24)
--- NOTE | 2017-02-24 17:24 | ED DISCHARGE INSTRUCTIONS ---
Patient: VITALIY WELLER General Instructions [facility] VisitID: [id number] [address] [place] [address] 66y, F Registration Date/Time: 02/23/2017 acute emphysematous cholecystitis. Acute right upper quadrant abdominal pain. (Electronically signed by Mason Santos Dr. 02/24/2017 17:24)
--- NOTE | 2017-02-24 17:24 | ED MAR SUMMARY ---
..... Medication Administration Record [facility] [address] [place] [place] [address] Patient: VITALIY WELLER Visit ID: [id number] 66y, F Weight: 114.3 kg Height/Length: 64 in BMI: 43.3 ALLERGIES: Fentanyl, Dilaudid, Ceclor, Penicillin, Quinolones Start 16:41 02/23/2017 Esmer Joseph R.N. Medication Administered: IV NS (SALINE), Dose: IV Fluids over 1 hour(s), Rate: 1000 mL/hr, Site: #1 left AC. Medication Ordered: IV NS : initial bolus 1000 mL (1000 mL/hr), then 1000 mL/hr for X1 (NOW). Given 17:20 02/23/2017 Esmer Joseph R.N. Medication Administered: MORPHINE [IVP], Dose: 4 mg IVP over 2 minute(s), Site: #1 left AC. Medication Ordered: Morphine IV 4 mg (back log for 1700). Given 17:23 02/23/2017 Esmer Joseph R.N. Medication Administered: ZOFRAN [IVP] (ONDANSETRON HCL), Dose: 4 mg IVP over 2 minute(s), Site: #1 left AC. Medication Ordered: Zofran IV 4 mg (back log for 1700). Given 19:20 02/23/2017 Esmer Joseph R.N. Medication Administered: ZOFRAN [IVP] (ONDANSETRON HCL), Dose: 4 mg IVP over 2 minute(s), Site: #1 left AC. Medication Ordered: Zofran IV 4 mg (NOW). Given 19:29 02/23/2017 Esmer Joseph R.N. Medication Administered: MORPHINE [IVP], Dose: 8 mg IVP over 3 minute(s), Site: #1 left AC. Medication Ordered: Morphine IV 8 mg (HIGH ALERT MEDICATION, NOW). Start 19:43 02/23/2017 Esmer Joseph R.N. Medication Administered: AZTREONAM [IVPB], Dose: 2 gm IVPB over 5 minute(s), Rate: 120 mL/hr, Dispensed: 20 mL bag, Site: #1 left AC. Medication Ordered: Aztreonam IVPB 2 gm (NOW). Start 19:44 02/23/2017 Esmer Joseph R.N. Medication Administered: METRONIDAZOLE [IVPB], Dose: 500 mg IVPB over 1 hour(s), Rate: 100 mL/hr, Dispensed: 100 mL bag, Site: #1 left AC. Medication Ordered: Metronidazole IV 500 mg/100mL (NOW).
--- NOTE | 2017-02-24 17:25 | ED MED RECONCILIATION SUMMARY ---
Patient: VITALIY WELLER Medication Reconciliation Report [facility] VisitID: [id number] [address] [place] [address] 66y, F Registration Date/Time: 02/23/2017 Weight: 114.3 kg Height/Length: 64 in. BMI: 43.3 ALLERGIES: Ceclor, Dilaudid, Fentanyl, Penicillin, Quinolones The patient's Home Medications are listed below: THE FOLLOWING MEDICATIONS NEED TO BE RECONCILED: Atenolol Oral 100 mg, daily Ibuprofen Oral 800 mg, 3x a day Levothyroxine Sodium Oral 75 mcg, daily Losartan Potassium Oral 50 mg, daily Morphine Sulfate Oral 40 mg, daily, 30mg plus 10mg MS Contin Oral (15 mg) 1 tablet, daily Opana Oral (10 mg) 1 tablet, twice daily Ventolin HFA Inhalation The source(s) of the original Home Medication information: Not obtained. The following Medications were given to the patient in the Emergency Department: IV NS IV Fluids bolus 0, then 1000 mL/hr, administered: 02/23/2017 4:41:00 PM Morphine [IVP] IVP 4 mg, administered: 02/23/2017 5:20:00 PM Zofran [IVP] IVP 4 mg, administered: 02/23/2017 5:23:00 PM Zofran [IVP] IVP 4 mg, administered: 02/23/2017 7:20:00 PM Morphine [IVP] IVP 8 mg, administered: 02/23/2017 7:29:00 PM Aztreonam [IVPB] IVPB bolus 0, then 2 gm 120 mL/hr, administered: 02/23/2017 7:43:00 PM Metronidazole [IVPB] IVPB bolus 0, then 500 mg 100 mL/hr, administered: 02/23/2017 7:44:00 PM The following Medications were prescribed to the patient: None.
--- NOTE | 2017-02-24 17:25 | ED MED RECONCILIATION SUMMARY ---
Patient: VITALIY WELLER Medication Reconciliation Report [facility] VisitID: [id number] [address] [place] [address] 66y, F Registration Date/Time: 02/23/2017 Weight: 114.3 kg Height/Length: 64 in. BMI: 43.3 ALLERGIES: Ceclor, Dilaudid, Fentanyl, Penicillin, Quinolones The patient's Home Medications are listed below: THE FOLLOWING MEDICATIONS NEED TO BE RECONCILED: Atenolol Oral 100 mg, daily Ibuprofen Oral 800 mg, 3x a day Levothyroxine Sodium Oral 75 mcg, daily Losartan Potassium Oral 50 mg, daily Morphine Sulfate Oral 40 mg, daily, 30mg plus 10mg MS Contin Oral (15 mg) 1 tablet, daily Opana Oral (10 mg) 1 tablet, twice daily Ventolin HFA Inhalation The source(s) of the original Home Medication information: Not obtained. The following Medications were given to the patient in the Emergency Department: IV NS IV Fluids bolus 0, then 1000 mL/hr, administered: 02/23/2017 4:41:00 PM Morphine [IVP] IVP 4 mg, administered: 02/23/2017 5:20:00 PM Zofran [IVP] IVP 4 mg, administered: 02/23/2017 5:23:00 PM Zofran [IVP] IVP 4 mg, administered: 02/23/2017 7:20:00 PM Morphine [IVP] IVP 8 mg, administered: 02/23/2017 7:29:00 PM Aztreonam [IVPB] IVPB bolus 0, then 2 gm 120 mL/hr, administered: 02/23/2017 7:43:00 PM Metronidazole [IVPB] IVPB bolus 0, then 500 mg 100 mL/hr, administered: 02/23/2017 7:44:00 PM The following Medications were prescribed to the patient: None.
--- NOTE | 2017-02-24 22:10 | NUR ---
CALLED DR. MCKEON AND TOLD HIM PT HAS BEEN COMPLAINING OF HEART PALPITATIONS. HE WAS NOT CONCERNED. GAVE ME NO NEW ORDERS EXCEPT TO HOOK HER UO TO TELE.
--- NOTE | 2017-02-24 22:50 | NUR ---
SHOWED MD CURRENT TELE STRIP. WAS NOT CONCERNED AT THIS TIME. DR PAGE GAVE ME NO NEW ORDERS AT THIS TIME. PATIENT ASLEEP IN BED NOW.
--- NOTE | 2017-02-24 23:03 | NUR ---
PATIETN BEEN UP WALKING AROUND TODAY PER ORDERS. HAVE ENCOURAGED IS THORUGHOUT THE DAY. TURNING EVERY HOUR. IN NO DISTRESS. RESTING IN BED NOW. DR AWARE OF CURRENT LAB VALUES.
[2017-02-25 02:36] VITALS: BP 110/51
--- NOTE | 2017-02-25 04:37 | NUR ---
0410 pt states surgical site pain 5/10 tolerated, but severe pain 10/10 on back not relieved by Morphine RTC and PRN, c/o of nausea not relieved by previous Zofra dose, refusing for ambultation Q2hrs, refusing change position at times."i am withrawling from my pain med as it was cut back." frequest calls and complains about unrelieved back pain. Notified Dr Miranda re the above, received med, Tylenol PRN and Zofran once dose, " not going to give her more med, she will ask for more." pt was informed.
--- NOTE | 2017-02-25 06:26 | Progress Note ---
Subjective General 66-year-old female postop day 1 status post laparoscopic colostomy. Ambulatory. No shortness of breath or chest pain. Complains of back pain which is chronic for her. Tolerating by mouth. Some nausea secondary to her pain medication. Otherwise she states she is doing as well as can be expected. Physical Exam Vital Signs / I&Os Vital Signs Date Time Temp Pulse Resp B/P Pulse O2 O2 Flow FiO2 Ox Delivery Rate 02/25 0236 100.0 60 22 110/51 90 Room Air 05/ 0030 Room Air 05/ 2239 98.2 56 18 123/49 100 Room Air 05/08 2119 99.7 57 18 143/51 92 Room Air 05/08 1915 99.1 57 20 126/56 91 Room Air 05/ 1607 64 05/08 1413 99.3 49 22 129/54 93 Nasal 2.0 Cannula 05/08 1400 2.0 05/08 1315 68 20 128/57 92 Nasal 2.0 Cannula 05/08 1215 98.1 51 20 140/56 92 Nasal 2.0 Cannula 05/08 1145 98.4 65 20 144/69 100 Nasal 2.0 Cannula 05/08 1115 98.1 52 17 162/74 93 Nasal 2.0 Cannula 05/08 1100 2.0 05/08 1100 60 20 158/78 94 Nasal 2.0 Cannula 05/08 1045 98.6 52 20 169/82 94 Nasal 2.0 Cannula 05/08 1032 98.1 53 16 174/78 95 Nasal 2.0 Cannula 05/08 1018 99.0 60 13 158/59 97 Nasal 2.0 Cannula 05/08 1011 99.0 69 19 155/60 97 05/08 1005 60 17 155/60 100 05/08 0955 54 13 153/68 100 05/08 0950 54 12 150/62 100 05/08 0940 61 10 163/66 100 05/08 0930 61 10 161/73 100 05/08 0926 99.3 66 12 168/81 100 9.0 I&O 05/08 0800 05/08 1600 05/09 0000 Intake Total 1341 1714 360 Output Total 350 2660 300 Balance 991 -946 60 General Appearance Oriented X3, Cooperative, Mild distress Lungs Clear to auscultation Cardiovascular Regular rate and rhythm Abdomen trocar sites are dry and intact Skin no peripheral cyanosis Neurological No lateralizing signs Psych/Mental Status Mood normal Assessment and Plan Problem List 1. Acute emphysematous cholecystitis Plan Stable postop day 1 laparoscopic cholecystectomy. Individual of multiple medical problems. From his surgical point of view she is stable for discharge. Discussed with patient. States that she does not need any pain medication she has been at home. We'll discuss with hospitalist discharging today. Patient will follow-up with me later this week. Wound care instructions given. Diet as tolerated.
--- NOTE | 2017-02-25 06:30 | Provider's Discharge Care Plan ---
Problem, Goal, Plan Problem List 1. STATUS POST LAPAROSCOPIC CHOLECYSTECTOMY AND INTRAOPERATIVE Goals: Improve disease control, Therapeutic intervention Instructions: Follow up as directed, Take meds as directed
[2017-02-25 07:22] VITALS: BP 130/63
--- NOTE | 2017-02-25 07:29 | Progress Note ---
Subjective General Date of Note: 02/25/17 Date of admission 02/23/17 Initial consultation 02/23/17 Reason for consultation: Medical management of COPD, hypertension, and pain This is a 66-year-old white female who developed pain in the upper abdomen with radiation to the back. The onset after 4 days with severity of 10/10 prompted visit the [facility]. Other symptoms of nausea and vomiting. No diarrhea. No constipation. Imaging confirmed dx of cholecystitis. Admission under General Surgery, Dr. Horowitz. Consultation called for medical management. Subjective She reports that her pain is little bit better controlled overnight. Patient continues to have ongoing pain. The incisional pain is reducing. Patient does not have the abdominal pain she had on admission. Patient reports that she is ready go home. Patient was up and ambulating Patient requests Discharge Constitutional Weakness. Denies: Chills, Malaise. Respiratory Denies: SOB w/exertion. Cardiovascular Denies: Orthopnea, PND. Physical Exam Vital Signs / I&Os Vital Signs Date Time Temp Pulse Resp B/P Pulse O2 O2 Flow FiO2 Ox Delivery Rate 02/25 0236 100.0 60 22 110/51 90 Room Air 05/09 0030 Room Air 05/08 2239 98.2 56 18 123/49 100 Room Air 05/08 2119 99.7 57 18 143/51 92 Room Air 05/08 1915 99.1 57 20 126/56 91 Room Air 05/08 1607 64 05/08 1413 99.3 49 22 129/54 93 Nasal 2.0 Cannula 05/08 1400 2.0 05/08 1315 68 20 128/57 92 Nasal 2.0 Cannula 05/08 1215 98.1 51 20 140/56 92 Nasal 2.0 Cannula 05/08 1145 98.4 65 20 144/69 100 Nasal 2.0 Cannula 05/08 1115 98.1 52 17 162/74 93 Nasal 2.0 Cannula 05/08 1100 2.0 05/08 1100 60 20 158/78 94 Nasal 2.0 Cannula 05/08 1045 98.6 52 20 169/82 94 Nasal 2.0 Cannula 05/08 1032 98.1 53 16 174/78 95 Nasal 2.0 Cannula 05/08 1018 99.0 60 13 158/59 97 Nasal 2.0 Cannula 05/08 1011 99.0 69 19 155/60 97 05/08 1005 60 17 155/60 100 05/08 0955 54 13 153/68 100 05/08 0950 54 12 150/62 100 05/08 0940 61 10 163/66 100 05/08 0930 61 10 161/73 100 05/08 0926 99.3 66 12 168/81 100 9.0 I&O 05/08 0800 05/08 1600 05/ 0000 Intake Total 1341 1714 360 Output Total 350 2660 300 Balance 991 -946 60 General Appearance Oriented X3, Cooperative HEENT PERRLA Neck Supple Abdomen tenderness around the incisional site. No erythematous or leakage. Extremities No clubbing, No edema Neurological Normal speech Assessment and Plan Problem List 1. COPD (chronic obstructive pulmonary disease) Status Chronic Onset Date Unknown Plan Patient having stable airway. Continue the home regimen. 2. Hypertension Plan The pressure was well managed in hospital stay. Continue the home regimen on discharge. 3. Hypothyroid Plan Thyroid Replacement should continue upon discharge 4. Opiate use Plan Patient, on chronic opiate therapy for pain control. Continue with the home regimen on discharge 5. STATUS POST LAPAROSCOPIC CHOLECYSTECTOMY AND INTRAOPERATIVE Plan Status post cholecystectomy. General has schedule patient for outpatient follow -up. Cleared for medical discharge. Current status: Stable; diacharge home Anticipated discharge date: Anticipated discharge 02/25/2017 Anticipated discharge placement: Home Patient care time: Time spent in chart review, patient interview, physical exam, CPOE, and care documentation: 25 minutes Visit to patient today: Complexity of care: mild Initial patient evaluation: Hoffman, consultation by general surgery E&M Codes Inpatient Consult: Comp-Moderate/[id number]
--- NOTE | 2017-02-25 08:00 | NUR ---
PT IS IN BED AND REFUSINIG TO AMB AT THIS TIME. SHE STATES THAT SHE IS NOT AWAKE YET. IMPORTANCE OF AMB POST OP EXPLAIINED TO HER, SHE STATES SHE WILL WALK IN A LITTLE BIT.
--- NOTE | 2017-02-25 09:45 | NUR ---
PT AGAIN REFUSED TO AMBULATE, SHE WAS RECENTLY MEDICATED AND SO I HAD TO BE A LITTLE FIRM WITH HER AND EXPLAINED AGAIN THAT NOT MOVING WAS GOING TO BE A PROBLEM IN HER RECOVERY. I ALSO EXPLAINED THE IMPORTANCE OF USING THE IS. I TOLD HER THAT AFTER THE MAIN MEDS ARE THE BEST TIME FOR HER TO AMB AND DEEP BREATHING. SHE DID FINALLY GET UP AND AMB IN HALLS.
[2017-02-25 10:52] VITALS: BP 138/59
[2017-02-25] MEDS ORDERED: ZOFRAN ODT4 MG PO (11:47)
--- NOTE | 2017-02-25 13:04 | NUR ---
DISCHARGE INSTRUCTIONS REVIEWED WITH PT AND QUESTIONS ANSWERED. PT's RIDE ARRIVED AND PT WAS ABLE TO GET HERSELF UP AND DRESSED. PT DISCHARGED HOME WITH FRIEND. PT STATES SHE HAS A YOUNG FRIEND THAT WILL BE STAYING WITH HER AND HELPING HER AT HOME.
== END 2017-02-25 13:06 | disposition home or self-care (01) ==
LOC: ED SRH 16:14 → TRANS SRH 18:56 → ACUTE2 SRH 18:56
PROVIDERS: Specialist; ADMIT Student in an Organized Health Care Education/Training Program
PROC: 0FT44ZZ Resection of Gallbladder, Percutaneous Endoscopic Approach (ICD-10-PCS; principal; 2017-02-24 07:30)
PROC: BF101ZZ Fluoroscopy of Bile Ducts using Low Osmolar Contrast (ICD-10-PCS; principal; 2017-02-24 07:30)
DX: K80.00 Calculus of gallbladder with acute cholecystitis without obstruction (principal); I10 Essential (primary) hypertension; J44.9 Chronic obstructive pulmonary disease, unspecified; E03.9 Hypothyroidism, unspecified; M15.9 Polyosteoarthritis, unspecified
CPT/HCPCS: 29229; 29230; 29259; 29264; 50002; 60001; 70002; 80102; 80212; 80248; 82669; 82794; 82807; 83198; 83338; 83339; 83348; 83587; 83920; 83937; 83982; 84038; 85244; 90004; 90047; 90074; 90100; 90469; 92235; 92520; 92530; 92540; 93140; 94060; 95059